=== PATIENT | male | born 2000 | race African-American/Black ===

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

== ENCOUNTER 2022-01-29 01:05 | Emergency (ER) | payer MEDICAID ==
[~2022-01-29] VITALS: Ht 185.4 cm; Wt 150.0 kg
[2022-01-29 01:15] VITALS: BP 145/96
== END 2022-01-29 05:05 | disposition left against medical advice (07) ==
LOC: EDBD 01:05 → ER 01:19
DX: R10.13 Epigastric pain (principal); Z53.21 Procedure and treatment not carried out due to patient leaving prior to being seen by health care provider